=== PATIENT | female | born 1995 | race Caucasian/White ===

== ENCOUNTER 2017-12-17 10:23 | Emergency (ER) | payer OTHER ==
[~2017-12-17] VITALS: Ht 160 cm; Wt 46.3 kg
== END 2017-12-17 14:50 | disposition home or self-care (01) ==
LOC: ER 10:23
DX: N39.0 Urinary tract infection, site not specified (principal)

== ENCOUNTER 2024-07-11 20:29 | Emergency (ER) | payer OTHER ==
[~2024-07-11] VITALS: Ht 160 cm; Wt 47.6 kg
== END 2024-07-11 22:42 | disposition home or self-care (01) ==
LOC: ER 20:29
DX: H57.12 Ocular pain, left eye (principal)